=== PATIENT | female | born 1985 | race African-American/Black ===

== ENCOUNTER 2022-02-22 09:52 | Emergency (ER) | payer BC ==
[~2022-02-22] VITALS: Ht 167.6 cm; Wt 87.0 kg
[2022-02-22] MEDS ORDERED: ONDANSETRON HCL 4MG/2ML INJ IV STA (10:06)
[2022-02-22] MEDS ORDERED: MORPHINE SULFATE 4 MG/ML CPJ (NOT FOR IM USE) IV STA (10:06)
[2022-02-22] MEDS ORDERED: SODIUM CHLORIDE 0.9% 1,000 ML IV ONE (10:15)
[2022-02-22 10:34] LABS: CHLORIDE 109 mEq/L (98-107)
[2022-02-22 10:41] LABS: BASOPHILS % 0.9 % (0.0-2.0); EOSINOPHILS % 1.2 % (0.0-5.0); LYMPHOCYTES % 30.5 % (20.0-50.0); MEAN CORPUSCULAR HEMOGLOBIN 22.5 pg (28.0-32.0); MEAN CORPUSCULAR VOLUME 71.4 fL (81.0-99.0); MEAN PLATELET VOLUME 8.4 fl (7.4-10.4); MONOCYTES % 12.1 % (2.0-8.0); NEUTROPHILS % 55.3 % (40.0-76.0); PLATELET 311 x1000/uL (130-400); RED BLOOD CELL COUNT 5.33 mill/uL (4.2-5.4); RED CELL DISTRIBUTION WIDTH 16.3 % (11.6-14.6)
[2022-02-22 10:44] LABS: HCG SCREEN NEGATIVE
[2022-02-22] MEDS ORDERED: FAMOTIDINE 20MG/2ML VIAL IV ONE (10:45)
[2022-02-22 11:25] LABS: CLARITY URINE CLEAR (CLEAR); COLOR URINE YELLOW (YELLOW); KETONES URINE TRACE (NEGATIVE); LEUKOCYTE ESTERASE URINE TRACE (NEGATIVE); NITRITE URINE NEGATIVE (NEGATIVE); OCCULT BLOOD URINE NEGATIVE (NEGATIVE); PROTEIN URINE NEGATIVE (NEGATIVE); SPECIFIC GRAVITY URINE 1.024 (1.005-1.030)
[2022-02-22] MEDS ORDERED: OMEP20CA14 MT (12:40)
[2022-02-22 12:47] VITALS: BP 116/73
== END 2022-02-22 13:11 | disposition home or self-care (01) ==
LOC: ER 09:52
DX: K76.0 Fatty (change of) liver, not elsewhere classified (principal); J45.909 Unspecified asthma, uncomplicated
CPT/HCPCS: 36415; 71045; 76700; 80053; 81003; 83690; 84703; 85025; 93005; 96361; 96374; 99285; J3490; J7030

== ENCOUNTER 2022-04-22 06:27 | Emergency (ER) | payer BC ==
[~2022-04-22] VITALS: Ht 160 cm; Wt 82.8 kg
[~2022-04-22 06:27] MED LIST: OMEP20CA14 MT
[2022-04-22] MEDS ORDERED: MORPHINE SULFATE 4 MG/ML CPJ (NOT FOR IM USE) IV STA (06:43)
[2022-04-22 06:59] VITALS: BP 136/95
[2022-04-22 07:13] LABS: CHLORIDE 103 mEq/L (98-107)
[2022-04-22 07:17] LABS: PROTHROMBIN TIME 10.8 sec (9.6-11.0)
[2022-04-22 07:35] LABS: HCG SCREEN NEGATIVE
[2022-04-22 08:14] LABS: BASOPHILS % 0.4 % (0.0-2.0); EOSINOPHILS % 1.3 % (0.0-5.0); HEMATOCRIT. 38.3 % (36.0-48.0); HEMOGLOBIN. 12.3 g/dL (12.0-16.0); LYMPHOCYTES % 43.9 % (20.0-50.0); MEAN CORPUSCULAR HEMOGLOBIN 22.4 pg (28.0-32.0); MEAN CORPUSCULAR VOLUME 69.7 fL (81.0-99.0); MEAN PLATELET VOLUME 8.1 fl (7.4-10.4); MONOCYTES % 9.3 % (2.0-8.0); NEUTROPHILS % 45.1 % (40.0-76.0); PLATELET 398 x1000/uL (130-400); RED CELL DISTRIBUTION WIDTH 16.2 % (11.6-14.6)
[2022-04-22 09:06] LABS: CLARITY URINE CLEAR (CLEAR); COLOR URINE YELLOW (YELLOW); KETONES URINE TRACE (NEGATIVE); LEUKOCYTE ESTERASE URINE NEGATIVE (NEGATIVE); NITRITE URINE NEGATIVE (NEGATIVE); OCCULT BLOOD URINE TRACE (NEGATIVE); PH URINE 5.5 (4.5-8.0); PROTEIN URINE TRACE (NEGATIVE); SPECIFIC GRAVITY URINE 1.032 (1.005-1.030)
[2022-04-22] MEDS ORDERED: TOPUD PO (09:16)
[2022-04-22 10:20] LABS: PLATELET ESTIMATE NORMAL
== END 2022-04-22 09:37 | disposition home or self-care (01) ==
LOC: ER 06:27
DX: R10.13 Epigastric pain (principal); R11.0 Nausea; Z98.84 Bariatric surgery status; Z98.890 Other specified postprocedural states
CPT/HCPCS: 36415; 74176; 80053; 81003; 81025; 83690; 84703; 85025; 85610; 96374; 99284; J2270

== ENCOUNTER 2022-06-10 05:48 | Emergency (ER) | payer BC ==
[~2022-06-10] VITALS: Ht 160 cm; Wt 79.0 kg
[~2022-06-10 05:48] MED LIST changes: +TOPUD PO
[2022-06-10] MEDS ORDERED: ONDANSETRON HCL 4MG/2ML INJ IV STA (07:02)
[2022-06-10] MEDS ORDERED: KETOROLAC 30MG/ML VIAL IV STA (07:02)
[2022-06-10 07:48] VITALS: BP 129/88
[2022-06-10 08:07] LABS: BASOPHILS % 0.4 % (0.0-2.0); EOSINOPHILS % 0.4 % (0.0-5.0); HEMATOCRIT. 37.3 % (36.0-48.0); HEMOGLOBIN. 11.9 g/dL (12.0-16.0); LYMPHOCYTES % 12.3 % (20.0-50.0); MEAN CORPUSCULAR HEMOGLOBIN 22.2 pg (28.0-32.0); MEAN CORPUSCULAR VOLUME 69.7 fL (81.0-99.0); MEAN PLATELET VOLUME 8.7 fl (7.4-10.4); MONOCYTES % 6.3 % (2.0-8.0); NEUTROPHILS % 80.6 % (40.0-76.0); PLATELET 341 x1000/uL (130-400); RED BLOOD CELL COUNT 5.35 mill/uL (4.2-5.4); RED CELL DISTRIBUTION WIDTH 15.8 % (11.6-14.6)
[2022-06-10 08:14] LABS: CHLORIDE 107 mEq/L (98-107)
[2022-06-10 08:17] LABS: PROTHROMBIN TIME 10.9 sec (9.6-11.0)
[2022-06-10 08:20] LABS: HCG SCREEN NEGATIVE
[2022-06-10 09:03] LABS: CLARITY URINE CLEAR (CLEAR); COLOR URINE YELLOW (YELLOW); KETONES URINE NEGATIVE (NEGATIVE); LEUKOCYTE ESTERASE URINE NEGATIVE (NEGATIVE); NITRITE URINE NEGATIVE (NEGATIVE); OCCULT BLOOD URINE NEGATIVE (NEGATIVE); PROTEIN URINE NEGATIVE (NEGATIVE); SPECIFIC GRAVITY URINE 1.017 (1.005-1.030)
[2022-06-10 09:08] LABS: PLATELET ESTIMATE NORMAL
[2022-06-10] MEDS ORDERED: TOPUD PO (09:08)
== END 2022-06-10 09:24 | disposition home or self-care (01) ==
LOC: ER 06:28
DX: R10.84 Generalized abdominal pain (principal); R11.2 Nausea with vomiting, unspecified; Z98.84 Bariatric surgery status; Z98.890 Other specified postprocedural states
CPT/HCPCS: 36415; 74176; 80053; 81003; 81025; 83690; 84703; 85025; 85610; 96374; 96375; 99284; J1885; J2405

== ENCOUNTER 2022-08-03 07:15 | Emergency (ER) | payer BC ==
[~2022-08-03] VITALS: Ht 165.1 cm; Wt 73.0 kg
[2022-08-03 07:23] VITALS: BP 142/78
== END 2022-08-03 10:43 | disposition left against medical advice (07) ==
LOC: ER 07:15
DX: R10.84 Generalized abdominal pain (principal); Z98.890 Other specified postprocedural states; Z98.84 Bariatric surgery status
CPT/HCPCS: 99283